=== PATIENT | female | born 1990 | race Two or more races ===

== ENCOUNTER 2020-09-23 14:52 | Inpatient (IN) | payer OTHER ==
[~2020-09-23] VITALS: Ht 157.5 cm; Wt 115.0 kg
[~2020-09-23 14:52] MED LIST: IRON325 MG PO; PRENATAL CAPLE1 EAC1 PO
== END 2020-09-25 08:47 | disposition home or self-care (01) | DRG 786 ==
LOC: OB/GYN 14:52 → LDR 14:52 → OB/GYN 17:29
PROVIDERS: ADMIT Obstetrics & Gynecology; ATTEND Obstetrics & Gynecology
PROC: 4A1HXFZ Monitoring of Products of Conception, Cardiac Rhythm, External Approach (ICD-10-PCS; 2020-09-23)
PROC: 10D00Z1 Extraction of Products of Conception, Low, Open Approach (ICD-10-PCS; principal; 2020-09-23 15:00)
DX: O36.4XX0 Maternal care for intrauterine death, not applicable or unspecified (principal); O45.8X3 Other premature separation of placenta, third trimester; O99.345 Other mental disorders complicating the puerperium; F53.0 Postpartum depression; Z3A.33 33 weeks gestation of pregnancy; Z37.1 Single stillbirth; Z20.822 Contact with and (suspected) exposure to COVID-19